=== PATIENT | male | born 1960 | race Caucasian/White ===

== ENCOUNTER 2019-11-29 15:47 | Inpatient (IN) | payer MEDICARE, OTHER ==
[~2019-11-29] VITALS: Ht 182.9 cm; Wt 110.2 kg
[2019-11-29] MEDS ORDERED: HALDOL (15:59)
--- NOTE | 2019-11-29 16:00 | NUR ---
patient with 1:1 sitter at bedside.
--- NOTE | 2019-11-29 16:20 | NUR ---
patient tested for Covid-19 as ordered specimen taken by lab staff
[2019-11-29 16:27] LABS: BASOPHILS % (AUTO) 0.5 % (0.0-2.0); EOSINOPHILS # (AUTO) 0.1 K/uL (0.0-0.7); EOSINOPHILS % (AUTO) 0.7 % (0.0-7.0); HEMATOCRIT 39.1 % (36.7-47.1); HEMOGLOBIN 13.3 g/dL (12.5-16.3); LYMPHOCYTES # (AUTO) 1.8 K/uL (20.0-40.0); LYMPHOCYTES % (AUTO) 22.7 % (20.5-51.5); MEAN CORPUSCULAR HEMOGLOBIN 28.5 uug (23.8-33.4); MEAN CORPUSCULAR HGB CONC 34 g/dL (32.5-36.3); MEAN CORPUSCULAR VOLUME 83.6 fL (73.0-96.2); MONOCYTES # (AUTO) 0.6 K/uL (2.0-10.0); NEUTROPHILS # (AUTO) 5.5 K/uL (1.8-8.9); NEUTROPHILS % (AUTO) 69.1 % (38.5-71.5); PLATELET COUNT (AUTO) 288 K/uL (152-348); RED BLOOD CELL COUNT(AUTO) 4.68 MIL/uL (4.06-5.63); WHITE BLOOD COUNT (AUTO) 7.9 K/uL (3.6-10.2)
[2019-11-29 16:42] LABS: CARBON DIOXIDE 29 mmol/L (21-32); CHLORIDE 100 mmol/L (98-107); CREATININE 0.8 mg/dL (0.6-1.3); POTASSIUM 3.8 mmol/L (3.5-5.1); UREA NITROGEN, BLOOD 13 mg/dL (7-18)
[2019-11-29 16:44] LABS: GLUCOSE 342 mg/dL (74-106)
[2019-11-29 16:49] LABS: ALANINE AMINOTRANSFERASE 17 U/L (16-63); ALKALINE PHOSPHATASE 107 U/L (50-136); ASPARTATE AMINOTRANSFERASE 10 U/L (15-37); BILIRUBIN,DIRECT 0.1 mg/dL (0.0-0.2); BILIRUBIN,TOTAL 0.5 mg/dL (0.2-1.0); TOTAL PROTEIN, SERUM 7.3 g/dL (6.4-8.2)
[2019-11-29 16:50] LABS: THYROID STIMULATING HORMONE 2.184 mIU/mL (0.358-3.740)
--- NOTE | 2019-11-29 16:50 | NUR ---
at bedside to examine patient.
[2019-11-29 17:00] LABS: ETHANOL < 3 MG/DL (0-0)
[2019-11-29] MEDS ORDERED: INSULIN REGULAR, HUMAN 300 UNIT/3 ML VIAL SQ ONE (17:00)
[2019-11-29] MEDS ORDERED: INSULIN REGULAR, HUMAN 300 UNIT/3 ML VIAL ONE (17:06)
[2019-11-29 17:25] LABS: *BILIRUBIN,URIN NEGATIVE (NEGATIVE); *BLOOD, URINE NEGATIVE (NEGATIVE); *CLARITY,URINE CLEAR (CLEAR); *COLOR,URINE YELLOW (YELLOW); *KETONES,URINE NEGATIVE (NEGATIVE); *UROBILINOGEN,URINE 0.2 E.U./dl (NORMAL); NITRITE, URINE NEGATIVE (NEGATIVE); PH,URINE 6.5 (5.0-8.0); UGLUCOSE 2+ (NEGATIVE)
[2019-11-29 17:27] LABS: LEUKOCYTE ESTERASE ,URINE NEGATIVE (NEGATIVE)
[2019-11-29 17:38] LABS: *AMPHETAMINE, URINE NEGATIVE (NEGATIVE); *BARBITURATE, URINE NEGATIVE (NEGATIVE); *CANNABINOID, URINE NEGATIVE (NEGATIVE); *COCCAINE, URINE NEGATIVE (NEGATIVE); *OPIATE, URINE NEGATIVE (NEGATIVE); *PHENCYCLIDINE SCREEN,URINE NEGATIVE (NEGATIVE)
--- NOTE | 2019-11-29 19:15 | NUR ---
Received report from outgoing RN, patient is ready to go to the unit. Pt was already medically cleared and accepted for admission. Pending COVID 19 test results. Followed up with Lab, was informed that sample was already picked up ar around 1830. Pt is in bed, monitoring provided by security. All belongings at nursing station. Pending bed per MHU.
--- NOTE | 2019-11-29 19:16 | NUR ---
Report given to incoming richelle Knight.
--- NOTE | 2019-11-29 21:24 | NUR ---
Covid (-) result. Report given to Natalie ZHONG
--- NOTE | 2019-11-29 21:28 | NUR ---
Transferring pt via wheelchair to U 138 B in stable condition. Belongings list completed by OKSANA RN. All belongings with RN and will handover to U nurse.
[2019-11-29] MEDS ORDERED: ACETAMINOPHEN 325 MG TABLET PO PRN (21:45)
[2019-11-29] MEDS ORDERED: LORAZEPAM 0.5 MG TABLET PO PRN (21:45)
[2019-11-29] MEDS ORDERED: BLOOD SUGAR DIAGNOSTIC 1 EACH STRIP VI ONE (21:45)
[2019-11-29] MEDS ORDERED: MAGNESIUM HYDROXIDE 30 ML LIQUID UDC PO PRN (21:45)
[2019-11-29] MEDS ORDERED: MAG HYDROX/AL HYDROX/SIMETH 30 ML LIQUID UDC PO PRN (21:45)
[2019-11-29] MEDS ORDERED: DEXTROSE 50% 50 ML DISP.SYRIN IV PRN (22:00)
[2019-11-30] MEDS: TEMAZEPAM 7.5 MG CAPSULE PO PRN ×2 (02:08→20:57)
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
[2019-11-30] MEDS: BLOOD SUGAR DIAGNOSTIC 1 EACH STRIP VI SCH ×4 (07:00→20:34)
[2019-11-30 07:30] VITALS: BP 156/63
[2019-11-30] MEDS: INSULIN REGULAR, HUMAN 300 UNIT/3 ML VIAL SQ PRN ×4 (08:45→20:56)
--- NOTE | 2019-11-30 10:22 | NUR ---
Gps/Manager Women- Conversant , compliant with his routine mediciations
--- NOTE | 2019-11-30 10:23 | NUR ---
Gps/Machine Set Up Operator- Interactive, making his needs known to the staff , left mid. toe amputee dark discoloration AGENCY SERVICE REPRESENTATIVE , no drainage noted, sutures are intact, denies pain at this time.Making his needs known, alert, oriented x3 .Patient denies calling #[phone], claimed it was the [employer] " they falsely accuses me of a lot of things"
--- NOTE | 2019-11-30 10:41 | NUR ---
called the boiler house operator Keya , regarding patients medication record, she said will call back since she dont have the information at this time , tried getting information from the patient and patient with irritated voice verbalizes that he is only on haldol and insulin, will continue to verify patient medication record, patient allowed to take picture of his left toe , noted that he has sutures still intact from recent toe amputation, will continue monitor
[2019-11-30] MEDS ORDERED: DEXTROSE 50% 50 ML DISP.SYRIN IV PRN (12:15)
--- NOTE | 2019-11-30 12:35 | NUR ---
Gps/Merry Go Round Operator Labile mood, argumentative with staff, angry affect, claimed " i swallowed 21 time w/o water and i do this all the time at time" requesting to have his blood sugar check again , does not remember blood sugar checked 15 minutes ago, demanding to have it check or else he will not take his insulin coverage. Encouraged to make notes of is blood sugars r/t he does not remember. Patient apologizes after BS rechecked to reassured him its been elevated ( BS 315 -rechecked). Ativan 0.5 mg 1 tab was given. po.
[2019-11-30] MEDS ORDERED: HALOPERIDOL 0.5 MG TABLET PO SCH (13:00)
[2019-11-30 13:15] LABS: IRON, SERUM 38 ug/dL (50-175)
[2019-11-30 13:22] LABS: BILIRUBIN,TOTAL 0.4 mg/dL (0.2-1.0); CREATININE 0.8 mg/dL (0.6-1.3); POTASSIUM 3.9 mmol/L (3.5-5.1); TOTAL PROTEIN, SERUM 7.2 g/dL (6.4-8.2)
[2019-11-30] MEDS ORDERED: HALOPERIDOL LACTATE 10 MG/5 ML ORAL SOLUTION UDC PO SCH (13:30)
[2019-11-30] MEDS ORDERED: HALOPERIDOL 5 MG TABLET PO SCH ×2 (14:00→17:00)
[2019-11-30] MEDS: HALOPERIDOL 5 MG TABLET PO SCH ×2 (15:47→16:59)
[2019-11-30 16:00] VITALS: BP 149/86
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
[2019-11-30] MEDS: LORAZEPAM 1 MG TABLET PO PRN (18:29)
--- NOTE | 2019-11-30 18:30 | NUR ---
Gps/Italian Teacher- Pacing back and frofabiola kept asking for more foods(hamburger, milk milkshake, ice cream) informed patient her just had a big dinner and his blood sugars are elevated, patient does not want to acknowledge explanation, angry, stated he wants to "stabbed the Motor Installer on his back with a knife". Tree Planter was called for safety/ reinforcement.Ativan 1 mg po was given. Patient was redirected to the activity room, able to follow directions.Continue to monitor behavior.
[2019-11-30 20:00] VITALS: BP 149/90
[2019-11-30] MEDS: INSULIN GLARGINE,HUM 300 UNITS/3 ML CARTRIDGE SQ SCH (20:36)
[2019-11-30] MEDS: INSULIN REGULAR, HUMAN 300 UNITS/3 ML VIAL SQ PRN (20:56)
--- NOTE | 2019-12-01 06:24 | NUR ---
Received Pt in his room lying down in bed awake. A+Ox3 with episodes of forgetfulness. Pt states he "can't remember why" he was admitted to MHU. Pt is needy and demanding with food and snacks and is easily agitated when his wants are not immediately catered to and limits are set. Pt ate 2 puddings, crackers, and a sandwich for his HS snack, but still demanded more, Pt was redirected. HS BS 279, 6 units coverage administered per sliding scale with Lantus 30 units. Anxious and restless, Restoril 7.5mg administered at 2100 with good effect. Denies SI/HI and verbally contracts for safety. Noted to be hyper-hinduism and episodes of sexually inappropriate behavior with female staff, Pt redirected. Denies pain, VS stable.
--- NOTE | 2019-12-01 06:29 | NUR ---
AM BS 214
[2019-12-01] MEDS: BLOOD SUGAR DIAGNOSTIC 1 EACH STRIP VI SCH ×4 (06:32→20:10)
[2019-12-01 07:30] VITALS: BP 144/87
[2019-12-01] MEDS: HALOPERIDOL 5 MG TABLET PO SCH ×3 (08:44→17:19)
[2019-12-01] MEDS: LISINOPRIL 5 MG TABLET PO SCH (08:44)
[2019-12-01] MEDS: INSULIN REGULAR, HUMAN 300 UNIT/3 ML VIAL SQ PRN ×3 (08:50→16:52)
[2019-12-01] MEDS: LORAZEPAM 1 MG TABLET PO PRN (13:15)
--- NOTE | 2019-12-01 14:30 | NUR ---
Gps/Dental Amalgam Processor- Pacing back and forth the hallway, had spoken to his Domonique couple of times, but kept wanting staff to dial her phone .Patient always thirsty , kept asking for cold water . Per patient he refused to take depakote" you can not forced me to take it".
[2019-12-01] MEDS: DIVALPROEX 250 MG TABLET.DR PO SCH ×2 (15:58→18:13)
[2019-12-01 16:00] VITALS: BP 134/71
[2019-12-01] MEDS: BENZTROPINE MESYLATE 1 MG TABLET PO SCH (18:11)
--- NOTE | 2019-12-01 18:14 | NUR ---
Gps/Health Plan Manager- Patient he hates taking medications because it makes him sleepy, claimed he will take his medications this time , but if it makes him sleepy will refused next time.Reviewed with patient rationale, and give it a try. Patient calmer this pm.
[2019-12-01] MEDS: INSULIN REGULAR, HUMAN 300 UNITS/3 ML VIAL SQ PRN (20:13)
[2019-12-01] MEDS: INSULIN GLARGINE,HUM 300 UNITS/3 ML CARTRIDGE SQ SCH (20:15)
[2019-12-01 20:36] VITALS: BP 131/81
[2019-12-02] MEDS: LORAZEPAM 1 MG TABLET PO PRN (00:48)
--- NOTE | 2019-12-02 06:25 | NUR ---
Received Pt in his room lying down in bed awake. A+Ox3 with episodes of forgetfulness. Remains needy and demanding with food and snacks and is easily agitated when his wants are not immediately catered to and limits are set. Ativan 1mg administered at 0048 with good effect. Denies SI/HI and verbally contracts for safety. HS BS 227, 4 units coverage plus Lanuts 30 units administered as ordered. Denies pain, VS stable. AM BS 243.
[2019-12-02] MEDS: BLOOD SUGAR DIAGNOSTIC 1 EACH STRIP VI SCH ×4 (06:35→20:59)
[2019-12-02 07:30] VITALS: BP 133/72
[2019-12-02] MEDS: HALOPERIDOL 5 MG TABLET PO SCH ×3 (09:03→17:31)
[2019-12-02] MEDS: BENZTROPINE MESYLATE 1 MG TABLET PO SCH ×3 (09:03→17:30)
[2019-12-02] MEDS: DIVALPROEX 250 MG TABLET.DR PO SCH ×2 (09:03→12:31)
[2019-12-02] MEDS: LISINOPRIL 5 MG TABLET PO SCH (09:04)
[2019-12-02] MEDS: INSULIN REGULAR, HUMAN 300 UNIT/3 ML VIAL SQ PRN ×3 (09:10→17:35)
--- NOTE | 2019-12-02 10:24 | NUR ---
ALIZE Initial Discharge Note: Patient currently resides at [address] [place] [address], Keya Independent group fitness manager ([phone]). Spoke with Vera who stated that the patient is welcome back when he is stable and ready for discharge. Keya stated she might be able to arrange transportation for the patient upon discharge, to contact her at least 24 hours in advance. ALIZE will continue to work with pt, family, and MD to ensure a safe and proper discharge plan.
--- NOTE | 2019-12-02 10:36 | NUR ---
Firearms Report: Banjo Repair Person completed and submitted a [employer] firearms report for 5150 danger to others certification. A copy of report has been placed in patient chart.
--- NOTE | 2019-12-02 10:53 | NUR ---
WOUND CARE CONSULT: PT PRESENTS WITH LEFT 3RD TOE AMPUTATION SITE WITH SUTURES, PRESENT ON ADMISSION. PT STATES HAD SURGERY [address] DELCID AND DR SUAREZ. DR DELCID NOTIFIED OF DPM CONSULT REQUEST. PT IS AMBULATORY. WILL SEE PRN. MONTALVO IN AGREEMENT WITH PLAN OF CARE.
--- NOTE | 2019-12-02 13:25 | NUR ---
ALIZE Public Guardian Contact: ALIZE contacted the office of Public Guardian to inquire if this patient is conserved or not ([phone]) and was informed that this patient is not in their system.
--- NOTE | 2019-12-02 13:32 | NUR ---
ALIZE Discharge Planning: ALIZE faxed patient's referral packet to review to the following facilities: [facility] Attention to Mayco Hutchinson at [facility] [address] [place] [address] Attention to Mayco
--- NOTE | 2019-12-02 14:21 | NUR ---
SW Discharge Planning: SW faxed patient's referral packet to [facility] [address] [place] [address] ([phone]) attention to Oil Pipeline Operator-CJ.
[2019-12-02 16:00] VITALS: BP 143/83
[2019-12-02] MEDS: DIVALPROEX 500 MG TABLET.DR PO SCH (17:30)
--- NOTE | 2019-12-02 19:06 | NUR ---
[address] Brito, corporate licensed broker regarding sutures still intact on left 2nd toe. corporate licensed broker removed the sutures and apply xeroform with dry dressing and anchor with tape and to changed every other day and prn of soilage or when dressing removed.
[2019-12-02 20:00] VITALS: BP 147/83
[2019-12-02] MEDS: INSULIN GLARGINE,HUM 300 UNITS/3 ML CARTRIDGE SQ SCH (21:01)
[2019-12-02] MEDS: INSULIN REGULAR, HUMAN 300 UNITS/3 ML VIAL SQ PRN (21:09)
--- NOTE | 2019-12-03 03:34 | NUR ---
GPS/ PT A/OX2, VERBALLY ABLE TO MAKE NEEDS KNOWN. DENIED PAIN ON LEFT FOOT 2ND TOE. WOUND DRESSING INTACT AND ENCOURAGED PT TO REST AND ELEVATE FOOD . PT IS CONFUSE AND PACING WITHIN UNIT ON AND OFF, AND ASKING FOR FOOD OR MILK FREQUENTLY. REDIRECT AND MADE AWARE OF HIS DIABETES MONITOR AND MAINTENANCE. COOPERATIVE AND ROUTINE MEDS GIVEN, BLOOD SUGAR ALSO CHECKED AND WNL WITH INSULIN ADMINISTERED. CONTINUE MONITOR AND ENCOURAGED TO ADHERE TO TREATMENT REGIMEN.
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
[2019-12-03] MEDS: BLOOD SUGAR DIAGNOSTIC 1 EACH STRIP VI SCH ×4 (06:30→21:12)
[2019-12-03 07:55] VITALS: BP 127/72
[2019-12-03] MEDS: HALOPERIDOL 5 MG TABLET PO SCH ×3 (08:18→16:19)
[2019-12-03] MEDS: LISINOPRIL 5 MG TABLET PO SCH (08:18)
[2019-12-03] MEDS: BENZTROPINE MESYLATE 1 MG TABLET PO SCH ×3 (08:18→16:19)
[2019-12-03] MEDS: DIVALPROEX 250 MG TABLET.DR PO SCH ×2 (08:18→12:09)
[2019-12-03] MEDS: INSULIN REGULAR, HUMAN 300 UNIT/3 ML VIAL SQ PRN ×4 (08:20→21:21)
--- NOTE | 2019-12-03 11:21 | NUR ---
ALIZE Individual Therapy: This conventional underwriter met with the patient to conduct brief individual therapy. Patient presents with disorganized thought process. Patient asks this conventional underwriter the same questions repetitively, "Why am I considered gravely disabled?" "Where am I going to go?" "Can my come with me?". This conventional underwriter redirected the patient and provided reality orientation. Patient is forgetful and disoriented and is unable to engage in a meaningful conversation due to his disorganized thought process.
[2019-12-03] MEDS: LORAZEPAM 1 MG TABLET PO PRN (12:09)
--- NOTE | 2019-12-03 13:58 | NUR ---
patient is needy, demanding behavior, compliant with routine am.meds. encouraged to attend his group therapy,labile mood , wound care done to 3rd toe keep skin dry and clean at all time.
[2019-12-03 16:08] VITALS: BP 137/73
[2019-12-03] MEDS: DIVALPROEX 500 MG TABLET.DR PO SCH (16:19)
[2019-12-03 21:10] VITALS: BP 125/72
[2019-12-03] MEDS: INSULIN GLARGINE,HUM 300 UNITS/3 ML CARTRIDGE SQ SCH (21:16)
--- NOTE | 2019-12-04 03:35 | NUR ---
GPS/ Pt was noted to pace within nursing station to room and TV room. Frequently asking for food and to make calls out. Pt aware of facility and rules was reestablished and made aware not able to make too much outside calls at this time , will endorse to have social workers assist pt in am. Cooperative with all care and continue monitor.
[2019-12-04] MEDS: BLOOD SUGAR DIAGNOSTIC 1 EACH STRIP VI SCH ×4 (06:42→21:50)
[2019-12-04 07:30] VITALS: BP 126/51
[2019-12-04] MEDS: DIVALPROEX 250 MG TABLET.DR PO SCH ×2 (08:46→12:58)
[2019-12-04] MEDS: HALOPERIDOL 5 MG TABLET PO SCH ×3 (08:46→17:32)
[2019-12-04] MEDS: BENZTROPINE MESYLATE 1 MG TABLET PO SCH ×3 (08:46→17:32)
[2019-12-04] MEDS: LISINOPRIL 5 MG TABLET PO SCH (08:48)
[2019-12-04] MEDS: INSULIN REGULAR, HUMAN 300 UNIT/3 ML VIAL SQ PRN ×2 (12:31→17:37)
[2019-12-04 16:00] VITALS: BP 134/84
[2019-12-04] MEDS: DIVALPROEX 500 MG TABLET.DR PO SCH (17:32)
--- NOTE | 2019-12-04 18:55 | NUR ---
PATIENT CALM AND COMPLIANT WITH MEDICATIONS. ATTENDED ACTIVITY IN DAY ROOM. PATIENT DENIES SI.
[2019-12-04 20:40] VITALS: BP 128/67
[2019-12-04] MEDS: INSULIN GLARGINE,HUM 300 UNITS/3 ML CARTRIDGE SQ SCH (21:49)
[2019-12-04] MEDS: INSULIN REGULAR, HUMAN 300 UNITS/3 ML VIAL SQ PRN (21:51)
[2019-12-05] MEDS: TEMAZEPAM 7.5 MG CAPSULE PO PRN (01:14)
[2019-12-05 07:08] LABS: BASOPHILS # (AUTO) 0.1 K/uL (0.0-8.0); BASOPHILS % (AUTO) 0.8 % (0.0-2.0); EOSINOPHILS # (AUTO) 0.1 K/uL (0.0-0.7); EOSINOPHILS % (AUTO) 1.1 % (0.0-7.0); HEMATOCRIT 43.9 % (36.7-47.1); HEMOGLOBIN 14.7 g/dL (12.5-16.3); LYMPHOCYTES % (AUTO) 24.1 % (20.5-51.5); MEAN CORPUSCULAR HEMOGLOBIN 28.4 uug (23.8-33.4); MEAN CORPUSCULAR HGB CONC 34 g/dL (32.5-36.3); MEAN CORPUSCULAR VOLUME 84.8 fL (73.0-96.2); MONOCYTES # (AUTO) 0.8 K/uL (2.0-10.0); MONOCYTES % (AUTO) 8.9 % (0.0-11.0); NEUTROPHILS # (AUTO) 5.5 K/uL (1.8-8.9); NEUTROPHILS % (AUTO) 65.1 % (38.5-71.5); PLATELET COUNT (AUTO) 281 K/uL (152-348); RED BLOOD CELL COUNT(AUTO) 5.17 MIL/uL (4.06-5.63); WHITE BLOOD COUNT (AUTO) 8.5 K/uL (3.6-10.2)
[2019-12-05 07:26] LABS: BILIRUBIN,TOTAL 0.9 mg/dL (0.2-1.0); CREATININE 0.7 mg/dL (0.6-1.3); POTASSIUM 3.9 mmol/L (3.5-5.1); TOTAL PROTEIN, SERUM 7.6 g/dL (6.4-8.2)
[2019-12-05 07:30] VITALS: BP 129/72
[2019-12-05] MEDS: LISINOPRIL 5 MG TABLET PO SCH (08:38)
[2019-12-05] MEDS: DIVALPROEX 250 MG TABLET.DR PO SCH ×2 (08:38→12:34)
[2019-12-05] MEDS: HALOPERIDOL 5 MG TABLET PO SCH ×3 (08:38→17:37)
[2019-12-05] MEDS: BENZTROPINE MESYLATE 1 MG TABLET PO SCH ×3 (08:38→17:37)
[2019-12-05] MEDS: BLOOD SUGAR DIAGNOSTIC 1 EACH STRIP VI SCH ×4 (08:39→20:56)
[2019-12-05] MEDS: INSULIN REGULAR, HUMAN 300 UNIT/3 ML VIAL SQ PRN ×2 (12:41→17:43)
[2019-12-05 16:00] VITALS: BP 104/60
[2019-12-05] MEDS: DIVALPROEX 500 MG TABLET.DR PO SCH (17:38)
[2019-12-05 20:00] VITALS: BP 133/74
[2019-12-05] MEDS: INSULIN GLARGINE,HUM 300 UNITS/3 ML CARTRIDGE SQ SCH (21:30)
[2019-12-06] MEDS: BLOOD SUGAR DIAGNOSTIC 1 EACH STRIP VI SCH ×5 (06:55→21:09)
[2019-12-06 07:30] VITALS: BP 113/73
[2019-12-06] MEDS: HALOPERIDOL 5 MG TABLET PO SCH ×3 (08:20→16:58)
[2019-12-06] MEDS: DIVALPROEX 250 MG TABLET.DR PO SCH ×2 (08:20→12:40)
[2019-12-06] MEDS: BENZTROPINE MESYLATE 1 MG TABLET PO SCH ×3 (08:20→16:58)
[2019-12-06] MEDS: LISINOPRIL 5 MG TABLET PO SCH (08:23)
[2019-12-06] MEDS: INSULIN REGULAR, HUMAN 300 UNIT/3 ML VIAL SQ PRN ×3 (08:28→16:57)
--- NOTE | 2019-12-06 14:45 | NUR ---
ALIZE Family Contact: SW left a voicemail for patient's , Haylie ([phone]) regarding patient's discharge plan.
[2019-12-06 15:19] VITALS: BP 140/80
[2019-12-06] MEDS: DIVALPROEX 500 MG TABLET.DR PO SCH (16:58)
[2019-12-06 20:16] VITALS: BP 152/85
[2019-12-06] MEDS: INSULIN GLARGINE,HUM 300 UNITS/3 ML CARTRIDGE SQ SCH (21:13)
[2019-12-06] MEDS: INSULIN REGULAR, HUMAN 300 UNITS/3 ML VIAL SQ PRN (21:17)
--- NOTE | 2019-12-07 04:09 | NUR ---
GPS/ Pt had been calm and resting in bed with routine order and care provided. Pt during shift noted pacing on and off with requesting for food and water. No excessive behavior noted, re-directable and monitor. Blood sugar within normal parameter and due insulin administered. No s/s of hypo/hyperglycemic. Will continue monitor per Q/15minute head count.
[2019-12-07] MEDS: BLOOD SUGAR DIAGNOSTIC 1 EACH STRIP VI SCH ×4 (06:32→21:15)
[2019-12-07 07:30] VITALS: BP 101/64
[2019-12-07 07:41] LABS: BASOPHILS % (AUTO) 0.4 % (0.0-2.0); EOSINOPHILS # (AUTO) 0.1 K/uL (0.0-0.7); EOSINOPHILS % (AUTO) 1.2 % (0.0-7.0); HEMOGLOBIN 13.8 g/dL (12.5-16.3); LYMPHOCYTES # (AUTO) 2.1 K/uL (20.0-40.0); LYMPHOCYTES % (AUTO) 29.2 % (20.5-51.5); MEAN CORPUSCULAR HEMOGLOBIN 28.7 uug (23.8-33.4); MEAN CORPUSCULAR HGB CONC 34 g/dL (32.5-36.3); MEAN CORPUSCULAR VOLUME 85.3 fL (73.0-96.2); MONOCYTES # (AUTO) 0.7 K/uL (2.0-10.0); MONOCYTES % (AUTO) 10.3 % (0.0-11.0); NEUTROPHILS # (AUTO) 4.2 K/uL (1.8-8.9); NEUTROPHILS % (AUTO) 58.9 % (38.5-71.5); PLATELET COUNT (AUTO) 280 K/uL (152-348); WHITE BLOOD COUNT (AUTO) 7.2 K/uL (3.6-10.2)
[2019-12-07 07:54] LABS: BILIRUBIN,TOTAL 0.6 mg/dL (0.2-1.0); CREATININE 0.8 mg/dL (0.6-1.3); POTASSIUM 4.2 mmol/L (3.5-5.1); TOTAL PROTEIN, SERUM 7.4 g/dL (6.4-8.2)
[2019-12-07] MEDS: BENZTROPINE MESYLATE 1 MG TABLET PO SCH ×3 (09:06→16:30)
[2019-12-07] MEDS: DIVALPROEX 250 MG TABLET.DR PO SCH ×2 (09:06→12:50)
[2019-12-07] MEDS: HALOPERIDOL 5 MG TABLET PO SCH ×3 (09:07→16:30)
[2019-12-07] MEDS: LISINOPRIL 5 MG TABLET PO SCH (09:07)
[2019-12-07] MEDS: INSULIN REGULAR, HUMAN 300 UNIT/3 ML VIAL SQ PRN ×2 (11:57→16:32)
[2019-12-07 16:00] VITALS: BP 120/72
[2019-12-07] MEDS: DIVALPROEX 500 MG TABLET.DR PO SCH (16:30)
[2019-12-07 20:12] VITALS: BP 134/74
[2019-12-07] MEDS: INSULIN REGULAR, HUMAN 300 UNITS/3 ML VIAL SQ PRN (21:19)
[2019-12-07] MEDS: INSULIN GLARGINE,HUM 300 UNITS/3 ML CARTRIDGE SQ SCH (21:21)
--- NOTE | 2019-12-08 03:04 | NUR ---
RECEIVED PATIENT IN BED AWAKE MUMBLING TO HIMSELF.HE HOWEVER DENIED TALKING TO HIMSELF. HE IS NEEDY WITH OCCASIONAL PACING IN FRONT OF HIS ROOM. REDIRECTED. BLOOD SUGAR CHECKS WAS 231 AND NEEDED COVERAGE WAS PROVIDED.SNACKS WAS ALSO PROVIDED.COMPLIANT WITH MEDICATIONS AND CARE.WILL CONTINUE TO MONITOR.
[2019-12-08] MEDS: BLOOD SUGAR DIAGNOSTIC 1 EACH STRIP VI SCH ×4 (06:29→21:30)
--- NOTE | 2019-12-08 06:34 | NUR ---
SLEPT FAIRLY WELL FOR 5HOURS. UP AND PACING THE FLOOR.BLOOD SUGAR CHECK THIS MORNING IS 117.
[2019-12-08 07:30] VITALS: BP 112/69
[2019-12-08] MEDS: DIVALPROEX 250 MG TABLET.DR PO SCH ×2 (08:55→12:06)
[2019-12-08] MEDS: HALOPERIDOL 5 MG TABLET PO SCH ×3 (08:55→16:43)
[2019-12-08] MEDS: LISINOPRIL 5 MG TABLET PO SCH (08:55)
[2019-12-08] MEDS: BENZTROPINE MESYLATE 1 MG TABLET PO SCH ×3 (08:55→16:43)
[2019-12-08] MEDS: INSULIN REGULAR, HUMAN 300 UNIT/3 ML VIAL SQ PRN ×2 (12:08→16:44)
[2019-12-08 16:00] VITALS: BP 121/70
[2019-12-08] MEDS: DIVALPROEX 500 MG TABLET.DR PO SCH (16:43)
[2019-12-08 20:17] VITALS: BP 123/76
[2019-12-08] MEDS: INSULIN REGULAR, HUMAN 300 UNITS/3 ML VIAL SQ PRN (21:34)
[2019-12-08] MEDS: INSULIN GLARGINE,HUM 300 UNITS/3 ML CARTRIDGE SQ SCH (21:35)
[2019-12-09 07:30] VITALS: BP 117/71
[2019-12-09] MEDS: BLOOD SUGAR DIAGNOSTIC 1 EACH STRIP VI SCH ×4 (08:00→21:53)
[2019-12-09] MEDS: BENZTROPINE MESYLATE 1 MG TABLET PO SCH ×3 (08:35→16:57)
[2019-12-09] MEDS: HALOPERIDOL 5 MG TABLET PO SCH ×3 (08:35→16:57)
[2019-12-09] MEDS: LISINOPRIL 5 MG TABLET PO SCH (08:35)
[2019-12-09] MEDS: DIVALPROEX 250 MG TABLET.DR PO SCH ×2 (08:35→12:34)
[2019-12-09] MEDS: INSULIN REGULAR, HUMAN 300 UNIT/3 ML VIAL SQ PRN ×2 (12:57→16:58)
[2019-12-09 16:00] VITALS: BP 134/68
[2019-12-09 20:00] VITALS: BP 137/77
[2019-12-09 20:30] VITALS: BP 137/77
[2019-12-09] MEDS ORDERED: DIVALPROEX 500 MG TABLET.DR PO SCH (21:00)
[2019-12-09] MEDS: INSULIN GLARGINE,HUM 300 UNITS/3 ML CARTRIDGE SQ SCH (21:56)
[2019-12-09] MEDS: INSULIN REGULAR, HUMAN 300 UNITS/3 ML VIAL SQ PRN (21:57)
[2019-12-10] MEDS: LORAZEPAM 1 MG TABLET PO PRN (03:00)
--- NOTE | 2019-12-10 04:10 | NUR ---
RECEIVED PATIENT IN BED AWAKE. HE IS NEEDY WITH OCCASIONAL PACING IN FRONT OF HIS ROOM. REDIRECTED. BLOOD SUGAR CHECKS WAS 184. COVERAGE WAS PROVIDED. SNACKS WAS ALSO PROVIDED.COMPLIANT WITH MEDICATIONS AND CARE.WILL CONTINUE TO MONITOR.
[2019-12-10] MEDS: BLOOD SUGAR DIAGNOSTIC 1 EACH STRIP VI SCH ×3 (06:40→16:44)
--- NOTE | 2019-12-10 06:41 | NUR ---
SLEPT ON AND OFF FOR 4:00 HOURS.BLOOD SUGAR CHECK THIS MORNING IS 167.
[2019-12-10 07:30] VITALS: BP 103/60
--- NOTE | 2019-12-10 08:41 | NUR ---
SW Discharge Note: [facility] [place] [address] ([phone]) via Ambulance transportation at 1:00PM today. Certified Medical Transcriptionist spoke with ALESSIA, Base Wad Operator Adjuster ([phone]) at facility and he confirmed that patient has been accepted at their facility today. Patient is alert and oriented x3. Patient is not able to plan for self-care at this time but is willing to accept care provided for her at the facility. Patient denies suicidal or homicidal ideation. Patient is aware and agreeable with discharge plans. Patient presents with euthymic mood and congruent affect. Patient will continue to follow-up with Psychiatrist Dr. Diallo and Private Banker Dr. Morejon at [facility].
[2019-12-10] MEDS: HALOPERIDOL 5 MG TABLET PO SCH ×3 (09:18→16:35)
[2019-12-10] MEDS: BENZTROPINE MESYLATE 1 MG TABLET PO SCH ×3 (09:18→16:35)
[2019-12-10] MEDS: LISINOPRIL 5 MG TABLET PO SCH (09:18)
[2019-12-10] MEDS: DIVALPROEX 250 MG TABLET.DR PO SCH ×2 (09:18→12:17)
[2019-12-10] MEDS: INSULIN REGULAR, HUMAN 300 UNIT/3 ML VIAL SQ PRN ×2 (09:23→12:11)
[2019-12-10 16:00] VITALS: BP 130/72
--- NOTE | 2019-12-10 17:30 | NUR ---
GPS: Nursing Notes: Discharge Notes: Patient is awake and responding to her name, compliant with his medications, cooperative with nursing care, following directions, denies any SI/HI, denies any AH/VH, denies any pain or discomfort, denies any SOB, discharge to [facility] at [address] [place] [address] , report given to Sadie - RN booth supervisor, took all his belongings with him, transported to facility via ambulance. Patient will continue to follow-up with Psychiatrist Dr. Diallo and Film Splicer Dr. Morejon at [facility] for aftercare.
== END 2019-12-10 17:30 | DRG 885 ==
LOC: ER 15:47 → GPS 21:26
PROVIDERS: ADMIT Psychiatry & Neurology Psychosomatic Medicine; ATTEND Internal Medicine
DX: F29 Unspecified psychosis not due to a substance or known physiological condition (principal); E11.65 Type 2 diabetes mellitus with hyperglycemia; E44.1 Mild protein-calorie malnutrition; Z79.4 Long term (current) use of insulin; E88.09 Other disorders of plasma-protein metabolism, not elsewhere classified; F31.9 Bipolar disorder, unspecified; I10 Essential (primary) hypertension; I25.10 Atherosclerotic heart disease of native coronary artery without angina pectoris; E11.42 Type 2 diabetes mellitus with diabetic polyneuropathy; Z95.5 Presence of coronary angioplasty implant and graft; E66.9 Obesity, unspecified; Z68.33 Body mass index [BMI] 33.0-33.9, adult; Z89.422 Acquired absence of other left toe(s); F25.9 Schizoaffective disorder, unspecified
CPT/HCPCS: 36415; 70030-TC; 71045; 80164; 80307; 83550; 84443; 85025; 85730; 93005; A4663; G0480; J1815; J3490